=== PATIENT | male | born 2000 | race African-American/Black ===

== ENCOUNTER 2025-03-29 18:31 | Emergency (ER) | payer SELFPAY ==
[2025-03-29 18:37] VITALS: BP 140/96; PULSE 108; RESP 20; TEMP 37.3; O2SAT 100
--- NOTE | 2025-03-29 18:42 | ED_ITS ---
HPI - Wound/Laceration General Chief Complaint: Wound/Laceration <Keri Cherry PA-C - Last Filed: 04/07/25 15:10> Stated Complaint: cut hand yesterday <Keri Cherry PA-C - Last Filed: 04/07/25 15:10> Time Seen by Provider: 03/29/25 18:42 <Keri Cherry PA-C - Last Filed: 04/07/25 15:10> Focused HPI: This is a 25 year old male that presents to the ER for a laceration sustained to the left 4th finger 2 days ago. Reports he is not up to date on tetanus. GENERAL: Well-appearing, well-nourished, and in no acute distress. HEAD: Normocephalic, atraumatic. CHEST: Clear to auscultation. ?No respiratory distress. HEART: Regular rate and rhythm.? NEURO: ?Alert and oriented x3. Patient screened in triage and initial orders placed.? ?Additional care and disposition to be based upon?diagnostic testing and treatment. <Keri Cherry PA-C - Last Filed: 04/07/25 15:10> Related Data Allergies/Adverse Reactions: Allergies Allergy/AdvReac Type Severity Reaction Status Date / Time No Known Allergies Allergy Verified 03/29/25 18:58 <Keri Cherry PA-C - Last Filed: 04/07/25 15:10> Review of Systems Review of Systems: All systems reviewed & are unremarkable except as noted in HPI and below <Lisa Myers APRN - Last Filed: 03/29/25 19:26> Exam Narrative: GENERAL: Well appearing, well-nourished, non-toxic, in no acute distress. HEAD: Normocephalic, atraumatic. NECK: Supple. No adenopathy, no masses. RESPIRATORY: Airway patent, respirations nonlabored. Clear to auscultation bilaterally, no rales, rhonchi, wheezing. CARDIOVASCULAR: Regular rate and rhythm without murmurs, rubs, or gallops. Peripheral pulses 2+ and equal bilaterally. ABDOMINAL: Soft, nontender, nondistended, no hepatosplenomegaly. Normoactive BS. MUSCULOSKELETAL: Moves all extremities. Strength/ROM intact without gross deformities. SKIN: Warm, dry, normal color. No rashes. 1 cm linear laceration to right hand, bleeding controlled NEURO: A&O X3. Speech clear. Cranial nerves II-XII intact. No ataxic movements. PSYCHIATRIC: Appropriate mood and affect. Normal interaction. <Lisa Myers APRN - Last Filed: 03/29/25 19:26> Course Vital Signs Vital signs: Vital Signs Temperature 99.1 F 03/29/25 18:37 Pulse Rate 108 H 03/29/25 18:37 Respiratory Rate 20 03/29/25 18:37 Blood Pressure 140/96 H 03/29/25 18:37 Pulse Oximetry 100 03/29/25 18:37 Oxygen Delivery Room Air 03/29/25 18:37 Temperature 99.1 F 03/29/25 18:37 Pulse Rate 100 03/29/25 18:56 Respiratory Rate 18 03/29/25 18:56 Blood Pressure 129/85 03/29/25 18:56 Pulse Oximetry 99 03/29/25 18:56 Oxygen Delivery Room Air 03/29/25 18:56 <Keri Cherry PA-C - Last Filed: 04/07/25 15:10> Vital Signs Temperature 99.1 F 03/29/25 18:37 Pulse Rate 108 H 03/29/25 18:37 Respiratory Rate 20 03/29/25 18:37 Blood Pressure 140/96 H 03/29/25 18:37 Pulse Oximetry 100 03/29/25 18:37 Oxygen Delivery Room Air 03/29/25 18:37 Temperature 99.1 F 03/29/25 18:37 Pulse Rate 100 03/29/25 18:56 Respiratory Rate 18 03/29/25 18:56 Blood Pressure 129/85 03/29/25 18:56 Pulse Oximetry 99 03/29/25 18:56 Oxygen Delivery Room Air 03/29/25 18:56 <Lisa Myers, YOUSIF - Last Filed: 03/29/25 19:26> MDM - Wound/Laceration MDM Narrative Medical decision making narrative: Pt is a 25 year old male that presents to the ER for a laceration sustained to the left 4th finger 2 days ago. Reports he is not up to date on tetanus. Patient Education/Shared MDM: Patient's laceration is no longer bleeding at the time of examination. Patient strongly advised to apply pressure to the site is the bleeding resumes. He should keep antibiotic ointment on the site and keep it covered. Patient will be discharged home with any new prescriptions. Strict return precautions provided. Patient verbalized understanding and is in agreement with plan. Vital signs stable at time of discharge. All questions answered. <Lisa Myers APRN - Last Filed: 03/29/25 19:26> Differential Diagnosis Differential diagnosis: Likely laceration, abrasion and avulsion of skin <Lisa Myers APRN - Last Filed: 03/29/25 19:26> Discharge Plan Discharge Clinical Impression: Laceration <Keri Cherry PA-C - Last Filed: 04/07/25 15:10> Patient Disposition: Home <Keri Cherry PA-C - Last Filed: 04/07/25 15:10> Condition: Stable <ZANA Cavanaugh Last Filed: 04/07/25 15:10> Instructions: Antibiotic Form, Laceration (ED) <Keri Cherry PA-C - Last Filed: 04/07/25 15:10> Additional Instructions: Please return to the ER with any worsening symptoms. Follow-up with primary care provider as needed. You may take Tylenol and/or ibuprofen for pain control. Please keep [id number] antibiotic ointment on the site and keep it covered. <Keri Cherry PA-C - Last Filed: 04/07/25 15:10> Patient Language: [place] <Keri Cherry PA-C - Last Filed: 04/07/25 15:10> Follow-up/Referrals: [facility] [Primary Care Provider, Internal Medicine] Nelson Kimbrough MD [Physician, Family Practice] Referral Note: primary care provider <ZANA Cavanaugh Last Filed: 04/07/25 15:10> Time of Disposition: 19:25 <ZANA Cavanaugh Last Filed: 04/07/25 15:10> 19:25 <Lisa Myers APRN - Last Filed: 03/29/25 19:26>
[2025-03-29 18:56] VITALS: BP 129/85; PULSE 100; RESP 18; O2SAT 99
[2025-03-29] MEDS: TETANUS,DIPHTHERIA,AC PERTUSSIS ADULT (0.5 ML) BOOSTRIX IM (19:02)
== END 2025-03-29 19:40 | disposition home or self-care (01) ==
PROVIDERS: Emergency Provider Registered Nurse
DX: S61.215A Laceration without foreign body of left ring finger without damage to nail, initial encounter (principal); Z23 Encounter for immunization; W26.0XXA Contact with knife, initial encounter; Y93.G1 Activity, food preparation and clean up
CPT/HCPCS: 90471; 90715; 99282